=== PATIENT | female | born 1940 | race Caucasian/White ===

== ENCOUNTER → 2016-10-11 | Outpatient (CLI) | payer OTHER ==
[~2016-10-11] MED LIST: ALBUTEROL SULF8.5 GM IH; ALEVE220 M2 PO; ASPERCREME HE70.8 GM TP; ASPIR-LOW81 MG PO; CARVEDILOL25 MG PO; COREG25 M1 PO; DULERA 100 MCG/13 GM IH; DULERA 200 MCG/13 GM IH; EYE DROPS ADVAN15 ML BOTH EYES; LO-DOSE ASPIRIN81 M1 PO; LOW DOSE ASPIRI81 M1 PO; NAPROSYN-EC500 MG PO; PERCOCET 5/31 TABLET PO; PRAVASTATIN SOD80 MG PO; PREDNISONE10 MG PO; PREDNISONE20 MG PO; PROAIR HFA8.5 GM IH; SERTRALINE HCL50 MG PO; SIMVASTATIN10 M1 PO; SPIRIVA1 INHALATI IH; TRAMADOL HCL50 MG PO; TYLENOL ARTHRI650 MG PO; VENTOLIN HFA18 GM IH; ZESTRIL,PRINIVI10 MG PO; ZITHROMAX Z-PA250 MG PO; ZITHROMAX250 MG PO; ZOLOFT50 MG PO
== END | disposition home or self-care (01) ==
DX: R13.10 Dysphagia, unspecified (principal)
CPT/HCPCS: 92611 GN; G8996 GN; G8997 GN; G8998 GN

== ENCOUNTER 2017-03-08 18:41 | Emergency (ER) | payer OTHER ==
[~2017-03-08] VITALS: Ht 157.5 cm; Wt 109.9 kg
[2017-03-08 20:52] LABS: EOSINOPHIL (%) 1.9 % (0-5); EOSINOPHIL COUNT 0.1 K/uL (0-0.3); HEMATOCRIT 36.5 % (36.0-46.0); IMMATURE GRANULOCYTE (%) 0.2 % (0.0-0.7); INSTRUMENT ABS NEUTROPHIL CT 3.6 K/uL; LYMPHOCYTE COUNT 1.2 K/uL (1.0-2.8); MCH 30.5 PG (29.0-34.0); MCHC 32.6 G/DL (30.0-36.0); MCV 93.6 FL (83-99); MEAN PLAT.VOLUME 10.2 uM^3 (9.5-12.4); MONOCYTE COUNT 0.4 K/uL (0-0.8); NEUTROPHIL (%) 68.6 % (45-76); NEUTROPHIL COUNT 3.6 K/uL (1.8-6.4); PLATELET COUNT 189 K/uL (156-360); RBC DIS.WIDTH-CV 13.5 % (11.8-14.6); RBC DIS.WIDTH-SD 46.3 % (39-53); WHITE BLOOD COUNT 5.3 K/uL (4.1-10.2)
[2017-03-08 21:07] LABS: ADD MIUA? NO; BILIRUBIN NEGATIVE; BLOOD NEGATIVE; COLOR STRAW ((YELLOW)); GLUCOSE (STRIP) NEGATIVE; KETONES NEGATIVE; LEUKOCYTES NEGATIVE; NITRITE NEGATIVE; PROTEIN (STRIP) NEGATIVE; SPECIFIC GRAVITY 1.006 (1.000-1.030); UROBILINOGEN 0.2 MG/DL (0.2-1.0)
[2017-03-08 21:10] LABS: CHLORIDE 105 mEq/L (99-109); POTASSIUM 3.8 mEq/L (3.7-5.4); SODIUM 140 mEq/L (136-147)
[2017-03-08 21:12] LABS: GLUCOSE 90 mg/dL (70-99)
[2017-03-08 21:13] LABS: ANION GAP 9 MEQ/L (2-14)
[2017-03-08 21:14] LABS: TOTAL BILIRUBIN 0.3 mg/dL (0.0-1.0)
[2017-03-08 21:15] LABS: ALKALINE PHOSPHATASE 93 IU/L (3-129)
[2017-03-08 21:16] LABS: GFR ESTIMATE (CALCULATED) > 59 mL/min/
[2017-03-08 21:17] LABS: UREA NITROGEN (BUN) 16 mg/dL (9-23)
[2017-03-08] MEDS ORDERED: KEFLEX500 MG PO (21:34)
[2017-03-08 22:08] VITALS: BP 169/48
== END 2017-03-08 22:12 | disposition home or self-care (01) ==
LOC: EME 18:41
PROVIDERS: Emergency Medicine
DX: M79.89 Other specified soft tissue disorders (principal); J44.9 Chronic obstructive pulmonary disease, unspecified; I10 Essential (primary) hypertension; E78.5 Hyperlipidemia, unspecified; Z90.710 Acquired absence of both cervix and uterus
CPT/HCPCS: 71020; 80053; 81003; 83880; 85025; 93970; 99281; 99285

== ENCOUNTER 2017-07-04 16:28 | Emergency (ER) | payer OTHER ==
[~2017-07-04] VITALS: Ht 152.4 cm; Wt 110.7 kg
[~2017-07-04 16:28] MED LIST changes: +KEFLEX500 MG PO
[2017-07-04 19:20] LABS: HEMATOCRIT 35.8 % (36.0-46.0); MCH 29.7 PG (29.0-34.0); MCHC 31.6 G/DL (30.0-36.0); MCV 94.2 FL (83-99); PLATELET COUNT 253 K/uL (156-360); RBC DIS.WIDTH-CV 14.2 % (11.8-14.6); RBC DIS.WIDTH-SD 47.8 % (39-53)
[2017-07-04 19:31] LABS: CHLORIDE 107 mEq/L (99-109); POTASSIUM 3.6 mEq/L (3.7-5.4); SODIUM 141 mEq/L (136-147)
[2017-07-04 19:33] LABS: GLUCOSE 89 mg/dL (70-99)
[2017-07-04 19:34] LABS: ANION GAP 8 MEQ/L (2-14)
[2017-07-04 19:35] LABS: TOTAL BILIRUBIN 0.3 mg/dL (0.0-1.0)
[2017-07-04 19:36] LABS: ALKALINE PHOSPHATASE 114 IU/L (3-129)
[2017-07-04 19:37] LABS: GFR ESTIMATE (CALCULATED) > 59 mL/min/
[2017-07-04 19:38] LABS: UREA NITROGEN (BUN) 28 mg/dL (9-23)
[2017-07-04] MEDS ORDERED: KEFLEX500 MG PO (21:25)
[2017-07-04 22:17] VITALS: BP 172/61
== END 2017-07-04 22:19 | disposition home or self-care (01) ==
LOC: EME 16:28
PROVIDERS: Physician Assistant
DX: L03.115 Cellulitis of right lower limb (principal); Z96.651 Presence of right artificial knee joint; Z98.890 Other specified postprocedural states; I10 Essential (primary) hypertension; E78.5 Hyperlipidemia, unspecified; J44.9 Chronic obstructive pulmonary disease, unspecified; F41.9 Anxiety disorder, unspecified; F32.9 Major depressive disorder, single episode, unspecified; Z90.710 Acquired absence of both cervix and uterus; Z79.82 Long term (current) use of aspirin
CPT/HCPCS: 73564; 80053; 83605; 85027; 87040; 93971; 99281; 99285; J0696

== ENCOUNTER 2017-09-14 16:51 | Emergency (ER) | payer OTHER ==
[~2017-09-14] VITALS: Ht 157.5 cm; Wt 118.0 kg
[2017-09-14 20:31] VITALS: BP 183/80
== END 2017-09-14 20:46 | disposition home or self-care (01) ==
LOC: EME 16:51
PROC: 0HQKXZZ Repair Right Lower Leg Skin, External Approach (ICD-10-PCS; principal; 2017-09-14)
DX: S81.011A Laceration without foreign body, right knee, initial encounter (principal); W01.10XA Fall on same level from slipping, tripping and stumbling with subsequent striking against unspecified object, initial encounter; Z96.651 Presence of right artificial knee joint; I10 Essential (primary) hypertension; F41.9 Anxiety disorder, unspecified; Z79.82 Long term (current) use of aspirin; Z87.891 Personal history of nicotine dependence
CPT/HCPCS: 73564; 99281; 99284

== ENCOUNTER 2017-12-31 21:01 | Emergency (ER) | payer OTHER ==
[~2017-12-31] VITALS: Ht 154.9 cm; Wt 113.6 kg
[2018-01-01 01:28] VITALS: BP 188/89
== END 2018-01-01 01:30 | disposition home or self-care (01) ==
LOC: EME 21:01
PROC: 0HQKXZZ Repair Right Lower Leg Skin, External Approach (ICD-10-PCS; principal; 2017-12-31)
DX: S81.011A Laceration without foreign body, right knee, initial encounter (principal); S80.01XA Contusion of right knee, initial encounter; W01.0XXA Fall on same level from slipping, tripping and stumbling without subsequent striking against object, initial encounter; Y93.89 Activity, other specified; J44.9 Chronic obstructive pulmonary disease, unspecified; I10 Essential (primary) hypertension; E78.5 Hyperlipidemia, unspecified; F32.9 Major depressive disorder, single episode, unspecified; F41.9 Anxiety disorder, unspecified; Z96.651 Presence of right artificial knee joint; Z90.710 Acquired absence of both cervix and uterus; Z87.891 Personal history of nicotine dependence; Z79.82 Long term (current) use of aspirin
CPT/HCPCS: 73564; 99281; 99284